=== PATIENT | female | born 1985 | race African-American/Black ===

== ENCOUNTER → 2021-04-15 | Outpatient (CLI) | payer OTHER ==
--- NOTE | 2021-04-15 09:53 | RAD ---
2 views lumbar spine 04/15/2021 INDICATION: Low back pain COMPARISON STUDY: None FINDINGS: No evidence of acute fracture or alignment abnormality is identified. Vertebral body height s are preserved. Disc spaces are grossly preserved. No evidence of spondylolysis or spondylolisthesis is seen. No acute soft tissue changes are seen. IMPRESSION: Normal radiographic appearance of the lumbar spine Electronically signed by: Vel Randall MD (04/15/2021 9:50 AM) [id number]
== END ==
LOC: RAD 09:03
PROVIDERS: ATTEND Anesthesiology Pain Medicine
DX: Z02.71 Encounter for disability determination (principal); M54.50 Low back pain, unspecified
CPT/HCPCS: 72100

== ENCOUNTER 2021-05-11 14:28 | Emergency (ER) | payer SELFPAY | END 2021-05-11 21:07 | disposition left against medical advice (07) | LOC: ER 14:28 | DX: R10.9 Unspecified abdominal pain (principal); Z53.21 Procedure and treatment not carried out due to patient leaving prior to being seen by health care provider ==